=== PATIENT | male | born 1995 | race Caucasian/White ===

== ENCOUNTER 2016-10-09 05:07 | Emergency (ER) | payer BC ==
[~2016-10-09] VITALS: Ht 180.3 cm; Wt 80.0 kg
[2016-10-09 05:09] VITALS: BP 138/86; PULSE 78; RESP 16; TEMP 98.2; O2SAT 100
--- NOTE | 2016-10-09 05:31 | PD ---
HPI Chief Complaint: Respiratory Symptoms Time Seen by Provider: 05:25 Travel History International Travel<30 days: No Contact w/Intl Traveler<30days: No Traveled to known affect area: No History of Present Illness HPI 21-year-old white male presents to emergency department with complains of left- sided chest pain. He states that he plays baseball and his computer trainer has been adjusting his left ribs do to pain that he's been having his left upper shoulder. He has also been using cupping therapy. He states that the pain in his left upper back and shoulder now has gone into his chest. He states that he has shortness of breath, pain with taking a deep breath and movement. He denies any recent illness. No fever chills. No wheezing. PFSH Past Medical History Narrative Medical Left clavicle fracture Tetanus Vaccination: < 5 Years Past Surgical History Narrative Surgical Left clavicle fracture with ORIF Social History Alcohol Use: No Tobacco Use: No Substance Use: No Allergies-Medications (Allergen,Severity, Reaction): Coded Allergies: No Known Allergies (Unverified , 10/09/16) Reported Meds & Prescriptions Reported Meds & Active Scripts Active No Active Prescriptions or Reported Medications Review of Systems Except as stated in HPI: all other systems reviewed are Neg General / Constitutional: No: Fever, Chills Eyes: No: Blurred Vision, Photophobia HENT: No: Headaches, Lightheadedness Cardiovascular: Positive: Chest Pain or Discomfort, No: Palpitations, Irregular Rhythm, Tachycardia Respiratory: Positive: Shortness of Breath, No: Cough, Wheezing Gastrointestinal: No: Nausea, Vomiting, Abdominal Pain Genitourinary: No: Dysuria Musculoskeletal: Positive: Myalgias, Arthralgias, Limited ROM, Cramping, Pain, No: Weakness, Edema Skin: No Rash, No Itching Physical Exam Narrative GENERAL: Well-developed, well-nourished in no apparent distress. Nontoxic appearing. HEAD: Normocephalic, atraumatic. EYES: Pupils equal round and reactive. Extraocular motions intact. No scleral icterus. No injection or drainage. ENT: Nose clear. Throat without erythema, tonsillar hypertrophy or exudate. Uvula midline. Airway patent. NECK: Trachea midline. Supple, nontender, moves head freely. No central bony tenderness or spasm. CARDIOVASCULAR: Regular rate and rhythm without murmurs, gallops, or rubs. RESPIRATORY: Clear to auscultation. Breath sounds equal bilaterally. No wheezes , rales, or rhonchi. CHEST: Nontender throughout without deformity or crepitance. No retractions or use of accessory muscles. GASTROINTESTINAL: Abdomen soft, non-tender, nondistended. No hepato-splenomegaly , or palpable masses. No guarding. EXTREMITIES: No clubbing, cyanosis, or edema. No joint tenderness. BACK: Patient has reproducible left periscapular tenderness with mild spasm. No central bony tenderness to palpation of the dorsal lumbar spine. Without deformity. No flank tenderness. NEUROLOGICAL: Awake, alert and oriented x 3 .Cranial nerves grossly intact. Motor and sensory grossly within normal limits. Normal speech. Data Data Last Documented VS Vital Signs Date Time Temp Pulse Resp B/P Pulse Ox O2 Delivery O2 Flow Rate FiO2 10/09/16 05:23 14 Room Air 10/09/16 05:09 98.2 78 138/86 100 Orders Ribs, Uni (W/Exp Cxr-Min 3vw) (10/09/16 05:23) MDM Medical Decision Making Medical Screen Exam Complete: Yes Emergency Medical Condition: Yes Medical Record Reviewed: Yes Interpretation(s) Left ribs: No obvious rib fracture. No thorax. No acute bony process. Differential Diagnosis Differential diagnosis: Fracture, strain, shingles, costochondritis, pneumothorax, thoracic outlet syndrome Narrative Course This is left chest wall pain Diagnosis Primary Impression: Left-sided chest wall pain Patient Instructions: General Instructions Additional Instructions: Rest. Ice for the next 3 days followed by heat . Prednisone, Robaxin and Voltaren. Follow-up with a primary care doctor in one week. Return to the ER for emergencies. Med/Other Pt SpecificInfo: Prescription(s) given, No Meds Exist/No RX given Scripts Diclofenac Sodium DR 75 Mg Tabdr75 Mg PO BID #20 TAB Prov:Brandon Lindsey MD 10/09/16 Methocarbamol (Robaxin)750 Mg Tab1,500 Mg PO TID 10 Days Prov:Brandon Lindsey MD 10/09/16 Prednisone (Deltasone)20 Mg Tab20 Mg PO TID #15 TAB Prov:Brandon Lindsey MD 10/09/16 Disposition: 01 DISCHARGE HOME Condition: Stable Gianluca Garsia Oct 09, 2016 05:31
[2016-10-09] MEDS ORDERED: ROBA750T PO (05:58)
[2016-10-09] MEDS ORDERED: DICL75TA PO (05:58)
[2016-10-09] MEDS ORDERED: PRED-503 PO (05:58)
--- NOTE | 2016-10-09 06:01 | RADRPT ---
EXAM DATE/TIME: 10/09/2016 05:42 [facility] COMPARISON: No previous studies available for comparison. INDICATIONS : Left rib and back pain for 3 days MEDICAL HISTORY : Fractured left clavicle SURGICAL HISTORY : ORIF left clavicle ENCOUNTER: Initial ACUITY: 3 days PAIN SCORE: 7/10 LOCATION: Left chest FINDINGS: Multiple views of the left ribs were performed. There is no evidence of displaced fracture. No dest ructive lesions or areas of periosteal thickening are seen. Expiratory view of the chest is negative for pneumothorax. The mediastinal structures are midline. Plate and screws along left clavicle. CONCLUSION: No left-sided rib fracture seen. Manuel Sibley MD on October 09, 2016 at 5:55 Board Certified Radiologist. This report was verified electronically.
== END 2016-10-09 06:27 | disposition home or self-care (01) ==
LOC: EDBD → NEPK 05:07
DX: R07.9 Chest pain, unspecified (principal); R06.02 Shortness of breath
CPT/HCPCS: 71101; 99283